=== PATIENT | female | born 1990 | race African-American/Black ===

== ENCOUNTER 2018-04-12 18:40 | Emergency (ER) | payer OTHER ==
[~2018-04-12] VITALS: Ht 177.8 cm; Wt 100.0 kg
[2018-04-12] MEDS ORDERED: HYDR25TA PO (19:02)
[2018-04-12 21:37] VITALS: BP 131/84
== END 2018-04-12 21:42 | disposition home or self-care (01) ==
LOC: EMS 18:41
DX: M76.62 Achilles tendinitis, left leg (principal); I10 Essential (primary) hypertension; F12.90 Cannabis use, unspecified, uncomplicated; F17.210 Nicotine dependence, cigarettes, uncomplicated
CPT/HCPCS: 99284; 99406

== ENCOUNTER 2018-06-22 10:07 | Emergency (ER) | payer OTHER ==
[~2018-06-22] VITALS: Ht 170.2 cm; Wt 109.1 kg
[~2018-06-22 10:07] MED LIST: HYDR25TA PO
[2018-06-22 13:57] VITALS: BP 138/80
== END 2018-06-22 14:00 | disposition home or self-care (01) ==
LOC: EMS 10:09
DX: M79.672 Pain in left foot (principal); I10 Essential (primary) hypertension; F12.90 Cannabis use, unspecified, uncomplicated; F17.210 Nicotine dependence, cigarettes, uncomplicated
CPT/HCPCS: 93971